=== PATIENT | female | born 1985 | race Caucasian/White ===

== ENCOUNTER 2016-09-12 02:22 | Inpatient (IN) | payer OTHER ==
[2016-09-12] MEDS ORDERED: METHYLERGONOVINE 0.2 MG/ML 1 ML AMP IM PRN (02:57)
[2016-09-12] MEDS ORDERED: OXYTOCIN 10 UNIT/ML 1 ML VIAL IM PRN (02:57)
[2016-09-12] MEDS ORDERED: LIDOCAINE 1% (PF) 10 MG/ML (30 ML SDV) SQ PRN (02:57)
[2016-09-12] MEDS ORDERED: PENICILLIN G POTASSIUM 5,000,000 UNIT in DEXTROSE 5% IN WATER 100 ML IV STA ×2 (02:57)
[2016-09-12] MEDS ORDERED: TERBUTALINE 1 MG/ML VIAL SQ PRN (02:57)
[2016-09-12] MEDS ORDERED: CARBOPROST TROMETHAMINE 250 MCG/ML 1 ML AMP IM PRN (02:57)
[2016-09-12] MEDS ORDERED: BUTORPHANOL 1 MG/ML 1 ML VIAL IV PRN (02:58)
[2016-09-12 03:26] VITALS: BMI 32.9
[2016-09-12] MEDS: LACTATED RINGERS 1,000 ML IV SCH ×3 (04:24→11:08)
[2016-09-12 04:43] LABS: Basophils % (A) 0 %; CH 32.8; CHCM 34.1; Eosinophils # (A) 0.1 k/uL (0-0.7); Eosinophils % (A) 1 %; HCT 40.5 % (34.0-46.0); HDW 2.44; HGB 13.5 gm/dL (11.4-16.0); Luc # (Auto) 0.21; Luc % (Auto) 2; Lymphocytes # (A) 2.1 k/uL (1.0-4.8); Lymphocytes % (A) 24 %; MCH 32.3 pg (25.0-35.0); MCHC 33.3 g/dL (31.0-37.0); MCV 96.8 fL (80.0-100.0); Monocytes # (A) 0.5 k/uL (0-1.0); Monocytes % (A) 6 %; Neutrophils # (A) 5.8 k/uL (1.3-7.7); Neutrophils % (A) 67 %; RBC 4.18 m/uL (3.80-5.40); RDW 13.6 % (11.5-15.5); WBC 8.7 k/uL (3.8-10.6); WBC (Perox) 8.73
[2016-09-12] MEDS ORDERED: OXYTOCIN 20 UNITS/1000 ML NS 1,000 ML IV SCH ×2 (06:00→12:15)
[2016-09-12] MEDS: PENICILLIN G POTASSIUM 2,500,000 UNIT in DEXTROSE 5% IN WATER 100 ML IV SCH ×4 (07:59→15:03)
--- NOTE | 2016-09-12 08:24 | P.HPOB ---
History of Present Illness H&P Date: 09/12/16 Chief Complaint: Rupture of membranes at 39-2/7 weeks This is a 31-year-old 2 para 1001 woman who presents at 39-2/7 weeks' gestation with spontaneous rupture of membranes. She has an estimated due date of 09/17/2016 based on first trimester ultrasound. She reports spontaneous rupture of clear fluid at approximately 1 AM. Rupture of membranes is confirmed upon presentation to labor and delivery triage. She is not in active labor. She is known group B strep positive. Her has otherwise been uncomplicated. She has a history of a previous normal spontaneous vaginal delivery in 2013 at 39 weeks of an 8 lbs. 5 oz. male . Her blood type is O+, antibody screen negative. She is rubella immune, HIV negative, hep Anais surface antigen negative, VDRL nonreactive. Review of Systems All systems: negative Past Medical History Past Medical History: No Reported History History of Any Multi-Drug Resistant Organisms: MRSA Date of last positivie culture/infection: 2011 MDRO Source:: Right Knee Additional Past Surgical History / Comment(s): [place] Teeth Extraction Past Anesthesia/Blood Transfusion Reactions: No Reported Reaction Past Psychological History: No Psychological Hx Reported Smoking Status: Never smoker Past Alcohol Use History: None Reported Past Drug Use History: None Reported - Past Family History Father Family Medical History: Hypertension Medications and Allergies Home Medications Medication Instructions Recorded Confirmed Type Ufs-Gieu-Auibf Acid 1 cap PO DAILY 09/12/16 09/12/16 History [-U Capsule (formulary)] Allergies Allergy/AdvReac Type Severity Reaction Status Date / Time No Known Allergies Allergy Verified 09/12/16 02:39 Exam - Vital Signs Vital signs: Vital Signs Temp Pulse Resp BP 09/12/16 02:43 96.0 F L 63 16 125/81 Intake and Output 09/11/16 09/12/16 09/12/16 22:59 06:59 14:59 Other: # Voids 1 Weight 89.811 kg Targeted physical exam is performed. Upon my initial evaluation patient is resting comfortably. She is visibly gravid female. On pelvic examination the cervix is 3 cm dilated 80% effaced and the vertex is in the -1 station. She is melia irregularly on Pitocin augmentation. heart tones are reassuring by external monitoring. Results Result Diagrams: 09/12/16 04:30 Assessment and Plan (1) 39 weeks gestation of Status: Acute (2) Premature rupture of membranes Status: Acute (3) GBS bacteriuria Status: Acute Plan: 31-year-old 2 para 1001 woman with spontaneous rupture of membranes, not in labor at 39-2/7 weeks' gestation. Group B strep prophylactic antibiotics have been initiated. She was recently started on Pitocin augmentation of labor. status is currently reassuring by external monitoring. She may have an epidural anesthetic upon request in active labor. Anticipate normal spontaneous vaginal delivery.
[2016-09-12] MEDS ORDERED: fentaNYL (PF) 50 MCG/ML 5 ML AMP ONE (10:17)
[2016-09-12] MEDS ORDERED: BUPIVACAINE (PF) 0.25% 30 ML VIAL ONE (10:17)
[2016-09-12] MEDS ORDERED: SODIUM CHLORIDE 0.9% 100 ML BAG ONE (10:17)
[2016-09-12] MEDS ORDERED: BUPIVACAINE (PF) 0.25% 25 ML, fentaNYL (PF) 200 MCG in SODIUM CHLORIDE 0.9% 71 ML EPIDURAL ONE (11:34)
[2016-09-12] MEDS ORDERED: diphenhydrAMINE 25 MG CAP PO PRN (12:05)
[2016-09-12] MEDS ORDERED: diphenhydrAMINE 50 MG CAP PO PRN (12:05)
[2016-09-12] MEDS ORDERED: SIMETHICONE 80 MG CHEWABLE PO PRN (12:05)
[2016-09-12] MEDS ORDERED: BENZOCAINE SPRAY 57GM TOPICAL PRN (12:05)
[2016-09-12] MEDS ORDERED: ACETAMINOPHEN TAB 325 MG TAB PO PRN (12:05)
[2016-09-12] MEDS ORDERED: HYDROCORTISONE 2.5% RECTAL CREAM 30 GM TUBE RECTAL PRN (12:05)
[2016-09-12] MEDS ORDERED: ZOLPIDEM 5 MG TAB PO PRN (12:05)
[2016-09-12] MEDS ORDERED: WITCH HAZEL 1 EACH MED..PAD TOPICAL PRN (12:05)
[2016-09-12] MEDS ORDERED: Acetaminophen-Codeine 300-30mg TAB PO PRN (12:05)
[2016-09-12] MEDS ORDERED: LANOLIN CREAM 5 GM TUBE TOPICAL PRN (12:05)
[2016-09-12] MEDS ORDERED: diphenhydrAMINE 50 MG/ML 1 ML VIAL IVP PRN ×2 (12:05)
--- NOTE | 2016-09-12 12:05 | P.PROBDLV ---
Vaginal Delivery Note - . Vaginal Delivery Note: Findings: Female in the vertex presentation with Apgars of 9 at 1 minute and 9 at 5 minutes weighing 7 lbs. 13 oz., 3650 g. Intact, three-vessel cord placenta. Second-degree midline episiotomy. Delivery summary: This is a 31-year-old 2 para 1001 woman who presented at 39-2/7 weeks' gestation with premature rupture of membranes. She was group B strep positive and prophylactic antibiotics were initiated. Rupture of membranes was at approximately 1 AM. Pitocin induction of labor was initiated approximately 6 AM. She reached complete cervical dilation by 1120. heart tones were reassuring throughout her first stage of labor. With pushing she did have some mild bradycardia to the 80-90 bpm. There was excellent descent of the vertex with good maternal effort. With the patient was repositioned, prepped and draped in the dorsal modified lithotomy position. With additional maternal effort the head was and a midline episiotomy was cut after infusion with local lidocaine. This facilitated delivery of the head with the next maternal effort. The nose and mouth were bulb suctioned and the rest the was rapidly delivered onto the field. The nose and mouth were further bulb suctioned and the was placed on the maternal abdomen. The cord was clamped and cut. Apgars were 9 at 1 minute and 9 at 5 minutes. Weight was 7 lbs. 13 oz. The perineum was inspected and a second-degree laceration was noted. This was infused with lidocaine and repaired in the usual fashion with 3-0 Vicryl suture. Following repair an intact, three-vessel cord placenta was expressed. She had a 30 minute second stage of labor and an 8 minute third stage of labor. The perineum, vagina and cervix were then reinspected and no further lacerations were noted. The uterus was massaged and was noted to be firm at the level of the umbilicus. She received Pitocin following the third stage of labor. All counts were correct. Both mother and were doing well post delivery in the room.
[2016-09-12] MEDS: IBUPROFEN 600 MG TAB PO PRN (20:47)
[2016-09-12] MEDS: SENNOSIDES-DOCUSATE SODIUM 1 EACH TAB PO SCH (20:47)
[2016-09-13] MEDS: IBUPROFEN 600 MG TAB PO PRN (05:58)
--- NOTE | 2016-09-13 08:19 | P.DS ---
Providers Date of admission: 09/12/16 02:40 Expected date of discharge: 09/13/16 Attending physician: Pamela Gamboa Primary care physician: Stated None - Discharge Diagnosis(es) (1) 39 weeks gestation of Current Visit: Yes Status: Acute (2) Premature rupture of membranes Current Visit: Yes Status: Acute (3) GBS bacteriuria Current Visit: Yes Status: Acute (4) Perineal laceration with delivery, second degree Current Visit: Yes Status: Acute (5) Normal spontaneous vaginal delivery Current Visit: Yes Status: Acute Hospital Course: This is a 4 now para 2 woman who presented at 39-2/7 weeks' gestation with spontaneous rupture of membranes, not in labor. She was group B strep positive and prophylactic antibiotics were initiated upon and admission. She received Pitocin induction of labor. She received an epidural anesthetic. She went on to deliver a liveborn female over a second-degree perineal midline episiotomy. The weighed 7 lbs. 13 oz. and had Apgars of 8 at 1 minute and 9 at 5 minutes. Please see the delivery summary for details. The patient's course was unremarkable. By day #1 she was ambulating and voiding without difficulty, her lochia was decreasing and her vital signs were stable. She was breast-feeding successfully. She was therefore discharged home with routine instructions for care and follow-up. Patient Condition at Discharge: Good Plan - Discharge Summary New Discharge Prescriptions: New Ibuprofen [Motrin] 600 mg PO Q6HR PRN tab PRN Reason: Mild Pain Or Fever >= 100.5 No Action [id number]-Gltl-[id number] Acid [-U Capsule (formulary)] 1 cap PO DAILY Discharge Medication List [id number] Acid [-U Capsule (formulary)] 1 cap PO DAILY [History] Ibuprofen [Motrin] 600 mg PO Q6HR PRN tab 09/13/16 [Rx] Follow up Appointment(s)/Referral(s): Pamela Gamboa MD [STAFF PHYSICIAN] - 6 Weeks Activity/Diet/Wound Care/Special Instructions: Follow-up in the office in 6 weeks . Call with any concerning signs or symptoms including heavy vaginal bleeding, severe abdominal pain, fever greater than 101, swelling or redness of the lower extremities, foul vaginal discharge, or signs of depression. Nothing in the vagina for 6 weeks after delivery, specifically no intercourse. Discharge Disposition: HOME SELF-CARE
[2016-09-13 08:38] VITALS: BP 116/78; PULSE 78; RESP 16; TEMP 97.8
[2016-09-13] MEDS: SENNOSIDES-DOCUSATE SODIUM 1 EACH TAB PO SCH (08:38)
== END 2016-09-13 13:35 | disposition home or self-care (01) | DRG 775 ==
LOC: FBPOP 02:22 → 4FBP 02:40
PROVIDERS: ADMIT Obstetrics & Gynecology; ATTEND Obstetrics & Gynecology
PROC: 3E0R3CZ (ICD-10-PCS; principal; 2016-09-12)
PROC: 10E0XZZ Delivery of Products of Conception, External Approach (ICD-10-PCS; principal; 2016-09-12)
PROC: 00HU33Z Insertion of Infusion Device into Spinal Canal, Percutaneous Approach (ICD-10-PCS; principal; 2016-09-12)
PROC: 0KQM0ZZ Repair Perineum Muscle, Open Approach (ICD-10-PCS; principal; 2016-09-12)
PROC: 0W8NXZZ Division of Female Perineum, External Approach (ICD-10-PCS; principal; 2016-09-12)
DX: O42.92 Full-term premature rupture of membranes, unspecified as to length of time between rupture and onset of labor (principal); O99.824 Streptococcus B carrier state complicating childbirth; Z37.0 Single live birth; Z3A.39 39 weeks gestation of pregnancy; O70.1 Second degree perineal laceration during delivery; O76 Abnormality in fetal heart rate and rhythm complicating labor and delivery; Z79.899 Other long term (current) drug therapy
CPT/HCPCS: 59025; 84112; 85025; 88307; 99213